=== PATIENT | male | born 1960 | race Caucasian/White ===

== ENCOUNTER 2018-12-31 16:58 | Inpatient (IN) | payer BC ==
[~2018-12-31] VITALS: Ht 195.6 cm; Wt 131.5 kg
[2018-12-31 17:10] VITALS: BP 112/57
[2018-12-31] MEDS ORDERED: NEURONTIN 300300 M1 PO (17:25)
[2018-12-31] MEDS ORDERED: HYZAAR 50-12.51 EACH PO (17:25)
[2018-12-31] MEDS ORDERED: MOBIC15 MG PO (17:25)
[2018-12-31] MEDS ORDERED: OMEPRAZOLE40 MG PO (17:25)
[2018-12-31] MEDS ORDERED: FLEXERIL PO (17:25)
[2018-12-31 17:44] LABS: HEMATOCRIT 48.9 % (42.0-52.0); HEMOGLOBIN 17.2 gm/dL (14.0-18.0); MCH 31.9 pg (26.0-34.0); MCHC 35.2 g/dL (28.0-37.0); MCV 90.5 fL (80.0-100.0); MPV 7.8 fl. (7.2-11.1); NUCLEATED RBCS 0 /100WBC; PLATELET COUNT* 167 thou/uL (150-400); RBC 5.41 mil/uL (4.50-6.00); RDW-CV 13.6 % (10.5-14.5); WBC 17.5 thou/uL (4.0-11.0)
[2018-12-31 17:58] LABS: CALCIUM 8.3 mg/dL (8.5-10.1); CREATININE 1.9 mg/dL (0.6-1.3)
[2018-12-31 17:59] LABS: POTASSIUM 2.8 mmol/L (3.5-5.1)
[2018-12-31 18:02] LABS: ALBUMIN 4.1 g/dL (3.4-5.0); TOTAL BILIRUBIN 0.6 mg/dL (<0.1-1.0); TOTAL PROTEIN 7.4 g/dL (6.4-8.2)
[2018-12-31 18:24] LABS: ABSOLUTE LYMPHOCYTES 0.7 thou/uL (0.8-5.3); ABSOLUTE NEUTROPHILS 16.8 thou/uL (1.6-8.1); PLATELET ESTIMATE ADEQUATE
[2018-12-31 18:36] LABS: URINE BLOOD NEGATIVE (Negative); URINE CLARITY SL CLOUDY; URINE COLOR YELLOW; URINE GLUCOSE-RANDOM NEGATIVE (Negative); URINE KETONES NEGATIVE (Negative); URINE LEUKOCYTES-REFLEX NEGATIVE (Negative); URINE NITRITE-REFLEX NEGATIVE (Negative); URINE PROTEIN 2+ (Negative); URINE SPECIFIC GRAVITY >= 1.030 (1.005-1.030); URINE UROBILINOGEN 0.2 E.U./dl (0.2-1.0)
[2018-12-31 18:38] LABS: ICTOTEST (BILI CONFIRMATORY) Negative (Negative); URINE BILIRUBIN 1+ (Negative)
[2018-12-31 18:43] LABS: SQUAMOUS NONE SEEN /LPF (0-3); URINE RBC 0-2 Rare /HPF (0-2); URINE WBC-REFLEX 0-5 Rare /HPF (0-5)
[2018-12-31 18:44] LABS: MUCUS >6 Heavy strn/LPF (None Seen)
[2018-12-31 18:45] LABS: FINE GRANULAR CASTS 4-10 Moderate /LPF (None Seen); HYALINE CASTS >10 Many /LPF (None Seen)
[2018-12-31 18:49] LABS: COARSE GRANULAR CASTS 0-3 Few /LPF (None Seen); CRYSTALS None Seen /LPF (None Seen); WBC CASTS 0-3 /LPF
[2018-12-31 18:58] LABS: INFLUENZA A ANTIGEN None Detected (None Detect); INFLUENZA B ANTIGEN None Detected (None Detect)
[2018-12-31 19:28] LABS: APTT 32.6 Seconds (25.0-31.3); PROTIME 10.7 Seconds (9.20-11.50)
[2018-12-31 21:10] VITALS: BP 107/61
[2018-12-31] MEDS ORDERED: LEXAPRO20 MG PO (21:14)
[2018-12-31] MEDS ORDERED: ZYRTEC10 M4 PO (21:15)
[2018-12-31] MEDS ORDERED: AMBIEN 10 MG TA10 MG PO (21:15)
[2018-12-31] MEDS ORDERED: GEMFIBROZIL 60600 MG PO (21:15)
[2018-12-31 21:35] VITALS: BP 91/55
[2019-01-01 00:22] VITALS: BP 105/56
[2019-01-01 04:14] VITALS: BP 104/69
[2019-01-01 05:09] LABS: ABSOLUTE MONOCYTES 0.6 thou/uL (0.0-1.2); ABSOLUTE NEUTROPHILS 12.4 thou/uL (1.6-8.1); BASOPHILS 0.2 %; HEMATOCRIT 47.5 % (42.0-52.0); HEMOGLOBIN 16.3 gm/dL (14.0-18.0); LYMPHOCYTES 7.2 %; MCH 32.5 pg (26.0-34.0); MCHC 34.3 g/dL (28.0-37.0); MCV 94.7 fL (80.0-100.0); MONOCYTES 4.4 %; MPV 8.2 fl. (7.2-11.1); NUCLEATED RBCS 0 /100WBC; PLATELET COUNT* 149 thou/uL (150-400); POLYS 88.2 %; RBC 5.01 mil/uL (4.50-6.00); RDW-CV 14.3 % (10.5-14.5)
[2019-01-01 05:39] LABS: CALCIUM 7.8 mg/dL (8.5-10.1); CREATININE 1.7 mg/dL (0.6-1.3); MAGNESIUM 1.6 mg/dL (1.8-2.4); PHOSPHORUS* 4.9 mg/dL (2.5-4.9)
[2019-01-01 05:52] LABS: POTASSIUM 2.6 mmol/L (3.5-5.1)
--- NOTE | 2019-01-01 07:24 | NUR ---
PT ADMITTED TO RM 312 @ 2135 FROM ER. VSS ON RA. ASSESSMENT DOCUMENTED. PT ORIENTED TO ROOM AND CALL LIGHT. FALL AGREEMENT SIGNED. CRITICAL k+ LEVEL NOTED. ELYTE PROTOCOL IN PLACE. IV ABX INFUSED ORDERED. UP AD DAVIE. PT ON SPECIAL CONTACT PENDING THE RULE OUT OF CDIFF. SINUS RHYTHM ON THE MONITOR. PT HAD A RUN OF VTACH @ 0459. PT AWAKE AND DENIED CHEST PAIN AT THAT TIME. HOURLY ROUNDINGS MADE. CALL LIGHT WITHIN REACH. WILL CONTINUE TO MONITOR.
[2019-01-01 08:00] VITALS: BP 108/61
--- NOTE | 2019-01-01 11:39 | EKG ---
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: : 1960 Requested By: Andria Crespo Order Number: [id number] MD: Carlton Yeboah Measurements Intervals [place] Rate: 122 P: 48 CT: 154 QRS: 25 QRSD: 96 T: -37 QT: 290 QTc: 413 Interpretive Statements Sinus tachycardia Probable left atrial enlargement Borderline T abnormalities, inferior leads Baseline wander in lead(s) II,III,aVF,V2 No previous ECG available for comparison Electronically Signed On 01-01-2019 11:39:04 CDT by Carlton Yeboah [email or web address] <ELECTRONICALLY SIGNED> By: Carlton Yeboah MD, [facility] 01/01/19 1139 [id number] Carlton Yeboah MD, [facility] /EPI
[2019-01-01 16:10] VITALS: BP 112/63
[2019-01-01 20:15] VITALS: BP 110/62
[2019-01-01 21:55] LABS: MAGNESIUM 2.2 mg/dL (1.8-2.4)
[2019-01-01 22:00] LABS: POTASSIUM 2.9 mmol/L (3.5-5.1)
[2019-01-02 00:06] VITALS: BP 128/64
[2019-01-02 04:03] VITALS: BP 106/54
[2019-01-02 04:47] LABS: ALBUMIN 3.3 g/dL (3.4-5.0); CALCIUM 7.5 mg/dL (8.5-10.1); CREATININE 0.8 mg/dL (0.6-1.3); MAGNESIUM 2.2 mg/dL (1.8-2.4); POTASSIUM 3.7 mmol/L (3.5-5.1); TOTAL BILIRUBIN 0.5 mg/dL (<0.1-1.0)
--- NOTE | 2019-01-02 05:57 | NUR ---
PT STATES HE FEELS A LITTLE BETTER THIS MORNING. STATES PHENERGAN RELIEVED NAUSEA, NO EMESIS OVERNIGHT. UP AD DAVIE TO BR WITH 4 LIQUID STOOLS OVERNIGHT HE STATES. DENIES PAIN. RAC SL. LFA IVF INFUSING PER PUMP. RECEIVED REPLACEMENT MAG AND K OVERNIGHT, AM LABS WNL. TELE SR. RENAL LABS IMPROVING. FAMILY MEMBER AT BEDSIDE THIS MORNING. ABLE TO USE CALL LITE AND MAKE NEEDS KNOWN. REMAINS ON SP CONTACT ISOLATION- CDIFF LABS PENDING RESULTS.
[2019-01-02 09:40] VITALS: BP 110/65
--- NOTE | 2019-01-02 16:32 | NUR ---
SW met with pt to complete assessment and follow up on AD/DPOA. Pt alert, oriented. Pt said that he did not need anything or anticipate any questions or concerns. SW asked about AD/DPOA, pt has info and did not want to complete at this time. SW encouraged pt to contact staff if pt wants to complete or for any assistance with safe dc plan.
--- NOTE | 2019-01-02 18:42 | NUR ---
PATIENT IS ALERT AND ORIENTED TODAY VERY PLEASANT. VITAL SIGNS STABLE ON ROOM AIR. ISOLATION IS IN PLACE FOR C DIFF, CAME BACK POSITIVE TODAY. IV IN RIGHT AC WORKS WELL WITH FLUIDS RUNNING. NO COMPLAINTS OF ANY KIND TODAY. CALL LIGHT IS IN REACH, WILL CONTINUE TO MONITOR.
[2019-01-02 20:20] VITALS: BP 130/88
[2019-01-03] VITALS: BP 105/68
[2019-01-03 04:00] VITALS: BP 130/67
--- NOTE | 2019-01-03 06:57 | NUR ---
PT STATES HE SLEPT FAIRLY WELL OVERNIGHT. UP AD DAVIE IN ROOM. STATES NO N/V, NO STOOLS OVERNIGHT. IVF INFUSING RAC. DENIES PAIN. REMAINS ON SP CONTACT ISOLATION FOR CDIFF+. ABLE TO USE CALL LITE AND MAKE NEEDS KNOWN.
[2019-01-03 09:00] VITALS: BP 136/75
[2019-01-03] MEDS ORDERED: VANCOMYCIN HCL125 MG PO (12:56)
[2019-01-03 13:01] VITALS: BP 136/75
--- NOTE | 2019-01-03 13:19 | NUR ---
PATIENT IS ALERT AND ORIENTED TODAY VERY PLEASANT. UP AD DAVIE IN ROOM. VITAL SIGNS STABLE ON ROOM AIR. NO COMPLAINTS OF ANY KIND TODAY. PATIENTS REPORT NO BOWEL MOVEMENTS TODAY OR NAUSEA. PATIENT IS BEING DISCHARGED TO HOME. DISCHARGE INSTRUCTIONS AND PRESCRIPTION GIVEN TO PATIENT, QUESTIONS ANSWERED FOR PATIENT. AMBULATED OUT WITH NURSING STAFF TO HOME WITH .
[2019-01-03 13:21] VITALS: BP 136/75
== END 2019-01-03 13:25 | disposition home or self-care (01) | DRG 872 ==
LOC: M.ERS 16:58 → M.TBA-ER 20:07 → M.3W 20:07
PROVIDERS: Nurse Practitioner Family; ADMIT Family Medicine
DX: A41.9 Sepsis, unspecified organism (principal); A04.72 Enterocolitis due to Clostridium difficile, not specified as recurrent; N17.9 Acute kidney failure, unspecified; N30.01 Acute cystitis with hematuria; E83.42 Hypomagnesemia; F17.210 Nicotine dependence, cigarettes, uncomplicated; E87.6 Hypokalemia; R65.20 Severe sepsis without septic shock; I10 Essential (primary) hypertension; G89.29 Other chronic pain; M25.569 Pain in unspecified knee; M54.9 Dorsalgia, unspecified; Z88.0 Allergy status to penicillin; Z88.5 Allergy status to narcotic agent; Z88.8 Allergy status to other drugs, medicaments and biological substances; Z79.899 Other long term (current) drug therapy